=== PATIENT | male | born 1935 | race Caucasian/White ===

== ENCOUNTER 2016-06-22 10:58 | Emergency (ER) | payer MEDICARE, OTHER ==
--- NOTE | 2016-07-22 13:14 | EDM.PDOC ---
ED HPI ENT - General Chief Complaint: ENT Problem Stated Complaint: left ear ache Time Seen by Provider: 06/22/16 11:00 Source of Information: Reports: Patient History Limitations: Reports: No limitations - History of Present Illness INITIAL COMMENTS - FREE TEXT/NARRATIVE: Pain in left ear today Timing/Duration: Reports: Day(s): (1), Gradual onset Severity: moderate Location: Reports: left Ear Quality: Reports: Ache Improves with: Reports: None Worsens with: Reports: None Associated Symptoms: Reports: no other symptoms - Related Data Allergies/ADRs: Allergies Allergy/AdvReac Type Severity Reaction Status Date / Time No Known Allergies Allergy Verified 06/22/16 11:04 Home Meds: Home Meds Aspirin [Ecotrin] 325 mg PO DAILY 06/22/16 [History] Bisacodyl [Dulcolax] 5 mg PO BID 06/22/16 [History] Carbidopa/Levodopa [Sinemet 25-100 mg] 1 tab PO TIDM 06/22/16 [History] Cyanocobalamin (Vitamin B-12) [Vitamin B-12] 1,000 mcg PO DAILY 06/22/16 [ History] Finasteride [Proscar] 5 mg PO DAILY 06/22/16 [History] Hydrocort/Neomycin/Polymyxin B [Cortisporin Otic Soln] 10 ml EARLF QID 10 Days 06/22/16 [Rx] Ipratropium [place] 30 ml NS DAILY 06/22/16 [History] Lisinopril [Zestril] 20 mg PO DAILY 06/22/16 [History] Lovastatin 20 mg PO DAILY 06/22/16 [History] Multivitamin [Poly-Vitamin] 1 each PO DAILY 06/22/16 [History] Primidone 250 mg PO Q12H 06/22/16 [History] Primidone [Mysoline] 200 mg PO 1500 06/22/16 [History] Propranolol [Propranolol CR 24 Hr] 120 mg PO DAILY 06/22/16 [History] Tamsulosin HCl [Flomax] 0.4 mg PO DAILY 06/22/16 [History] amLODIPine [Norvasc] 10 mg PO BEDTIME 06/22/16 [History] Past Medical History HEENT History: Reports: Other (see below) Other HEENT History: Has HINTON with some bilat. hearing loss, does not wear HINTON; wears glasses. left ear infection Other Gastrointestinal History: Occasional constipation Other Oncologic History: Patient reports hx of skin cancer with removal procedures, unsure of amount of procedures and type of cancer; poor historian Other Dermatologic History: Patient reports hx of skin cancer with removal procedures, unsure of amount of procedures and type of cancer; poor historian - Past Surgical History Other Musculoskeletal Surgeries/Procedures:: Right knee Social & Family History - Tobacco Use Smoking Status *Q: Former Smoker Second Hand Smoke Exposure: No - Caffeine Use Caffeine Use: Reports: Coffee - Recreational Drug Use Recreational Drug Use: No - Living Situation & Occupation Occupation: retired (Retired [employer]) ED ROS ENT - Review of Systems Review Of Systems: ROS reveals no pertinent complaints other than HPI. ED EXAM, ENT - Physical Exam Exam: See Below Exam Limited By: No limitations General Appearance: alert, WD/WN, no apparent distress Ears: normal external exam, hearing grossly normal, normal TMs, canal discharge Nose: normal inspection, normal mucousa, no blood Mouth/Throat: Normal inspection, Normal oropharynx Head: atraumatic, normocephalic Neck: normal inspection, supple, non-tender, full range of motion. No: lymphadenopathy (L), lymphadenopathy (R) Respiratory/Chest: no respiratory distress, lungs clear, no accessory muscle use Cardiovascular: regular rate, rhythm GI/Abdominal: soft, non tender Back: normal inspection, full range of motion Extremities: normal capillary refill Neurological: alert, oriented, CN II-XII intact, normal cognition, no motor/ sensory deficits Psychiatric: normal affect, normal mood Skin: Warm, Dry, Intact, Normal color, No rash Lymphatic: no adenopathy Course - Vital Signs Last Recorded V/S: Last Vital Signs Temp 36.3 C 06/22/16 10:58 Pulse 73 06/22/16 10:58 Resp 20 06/22/16 10:58 BP 111/63 06/22/16 10:58 Pulse Ox 94 L 06/22/16 10:58 Departure - Departure Time of Disposition: 11:20 Disposition: Home, Self-Care 01 Condition: good Clinical Impression: Otitis externa Qualifiers: Otitis externa type: unspecified type Laterality: left Chronicity: acute Qualified Code(s): H60.502 - Unspecified acute noninfective otitis externa, left ear Prescriptions: Hydrocort/Neomycin/Polymyxin B [Cortisporin Otic Soln] 10 ml EARLF QID 10 Days Instructions: Otitis Externa, [id number] Forms: ED Department Discharge Additional Instructions: Use the cortisporin for the next 10 days to get rid of the infection in the left ear - Problem List Review Problem List Initiated/Reviewed/Updated: No - Assessment/Plan Assessment:: Left Otitis Externa Plan: Cortisporin for 10 days
== END 2016-06-22 11:21 | disposition home or self-care (01) ==
LOC: LL.ED 10:58
CPT/HCPCS: 99282

== ENCOUNTER 2017-01-11 11:38 | Emergency (ER) | payer MEDICARE, OTHER ==
[2017-01-11 11:47] VITALS: BP 118/72
[2017-01-11] MEDS ORDERED: Magnesium Citrate Solution 296 ML Bottle PO ONE (13:10)
--- NOTE | 2017-01-11 13:13 | EDM.PDOC ---
ED HPI GENERAL MEDICAL PROBLEM - General Chief Complaint: Gastrointestinal Problem Stated Complaint: constipation Time Seen by Provider: 01/11/17 12:25 Source of Information: Reports: Patient History Limitations: Reports: No Limitations - History of Present Illness INITIAL COMMENTS - FREE TEXT/NARRATIVE: Patient complaining of constipation. Has mild nausea, no emesis. No fevers. Reports no BM for last 3-4 days. Has intermittent problems with constipation. Dulcolax was not helpful. Has generalized abdominal fullness/discomfort. Non-focal. Pain does not radiate. - Related Data Allergies Allergy/AdvReac Type Severity Reaction Status Date / Time Unable to Assess Allergy Verified 01/11/17 11:40 Home Meds: Home Meds Bisacodyl [Dulcolax] 5 mg PO BID 06/22/16 [History] Carbidopa/Levodopa [Sinemet 25-100 mg] 1 tab PO TIDM 06/22/16 [History] Cyanocobalamin (Vitamin B-12) [Vitamin B-12] 1,000 mcg PO DAILY 06/22/16 [ History] Finasteride [Proscar] 5 mg PO DAILY 06/22/16 [History] Ipratropium [place] 30 ml NS DAILY 06/22/16 [History] Lisinopril [Zestril] 20 mg PO DAILY 06/22/16 [History] Lovastatin 20 mg PO DAILY 06/22/16 [History] Multivitamin [Poly-Vitamin] 1 each PO DAILY 06/22/16 [History] Primidone 250 mg PO Q12H 06/22/16 [History] Primidone [Mysoline] 200 mg PO 1500 06/22/16 [History] Propranolol [Propranolol CR 24 Hr] 120 mg PO DAILY 06/22/16 [History] Tamsulosin HCl [Flomax] 0.4 mg PO DAILY 06/22/16 [History] amLODIPine [Norvasc] 10 mg PO BEDTIME 06/22/16 [History] Aspirin [Halfprin] 81 mg PO BRK 01/11/17 [History] Past Medical History HEENT History: Reports: Other (See Below) Other HEENT History: Has HINTON with some bilat. hearing loss, does not wear HINTON; wears glasses. left ear infection Other Gastrointestinal History: Occasional constipation Other Oncologic History: Patient reports hx of skin cancer with removal procedures, unsure of amount of procedures and type of cancer; poor historian Other Dermatologic History: Patient reports hx of skin cancer with removal procedures, unsure of amount of procedures and type of cancer; poor historian - Past Surgical History Other Musculoskeletal Surgeries/Procedures:: Right knee Social & Family History - Tobacco Use Smoking Status *Q: Former Smoker Years of Tobacco use: 22 Packs/Tins Daily: 1 Used Tobacco, but Quit: Yes Month Tobacco Last Used: 1975 Second Hand Smoke Exposure: No - Caffeine Use Caffeine Use: Reports: None - Recreational Drug Use Recreational Drug Use: No - Living Situation & Occupation Occupation: Retired ED ROS GENERAL - Review of Systems Review Of Systems: See Below Constitutional: Reports: No Symptoms. Denies: Fever, Night Sweats HEENT: Reports: No Symptoms Respiratory: Reports: No Symptoms Cardiovascular: Reports: No Symptoms GI/Abdominal: Reports: Abdominal Pain (fullness/crampy at times), Constipation, Nausea. Denies: Anorexia, Black Stool, Bloody Stool, Diarrhea, Decreased Appetite, Difficulty Swallowing, Distension, Stool Incontinence, Vomiting : Reports: No Symptoms Musculoskeletal: Reports: No Symptoms Skin: Reports: No Symptoms Neurological: Reports: No Symptoms Psychiatric: Reports: No Symptoms ED EXAM, GI/ABD - Physical Exam Exam: See Below Exam Limited By: No Limitations General Appearance: Alert, WD/WN, No Apparent Distress Eyes: Bilateral: Normal Appearance, EOMI Ears: Normal External Exam Nose: Normal Inspection, Normal Mucosa, No Blood Throat/Mouth: Normal Inspection, Normal Voice, No Airway Compromise Head: Atraumatic, Normocephalic Neck: Normal Inspection, Supple, Non-Tender, Full Range of Motion Respiratory/Chest: No Respiratory Distress, Lungs Clear, Normal Breath Sounds, No Accessory Muscle Use, Chest Non-Tender Cardiovascular: Regular Rate, Rhythm, No Murmur GI/Abdominal Exam: Abnormal Bowel Sounds (decreased overall, still present), Other (mild diffuse discomfort with palpation, not painful per patient, just feels full. ). No: Distended, Guarding, Rigid, Rebound, Tender (Male) Exam: Deferred Rectal (Males) Exam: Deferred Back Exam: Normal Inspection. No: CVA Tenderness (L), CVA Tenderness (R), Muscle Spasm, Paraspinal Tenderness, Vertebral Tenderness Extremities: Normal Capillary Refill Neurological: Alert, Oriented, Normal Cognition, No Motor/Sensory Deficits Psychiatric: Normal Affect, Normal Mood Skin Exam: Warm, Dry, Intact, Normal Color Course - Vital Signs Last Recorded V/S: Last Vital Signs Temp 36.6 C 01/11/17 11:46 Pulse 75 01/11/17 11:46 Resp 12 01/11/17 11:46 BP 118/72 01/11/17 11:46 Pulse Ox 95 01/11/17 11:46 - Orders/Labs/Meds Orders: Active Orders 24 hr Category Date Time Status Enema [RC] ASDIRECTED Care 01/11/17 12:01 Active Abdomen 1V Upright [CR] Stat Exams 01/11/17 12:00 Taken Meds: Medications Discontinued Medications Generic Name Dose Route Start Last Admin Trade Name Freq PRN Reason Stop Dose Admin Magnesium Citrate 150 ml 01/11/17 13:10 01/11/17 13:16 Citrate Of Magnesia PO 01/11/17 13:11 150 ml ONETIME ONE Administration - Radiology Interpretation Free Text/Narrative:: Diffuse stool. No changes suggestive of acute abdomen. - Re-Assessments/Exams Free Text/Narrative Re-Assessment/Exam: 01/11/17 13:21 Patient reports improvement after enema. Had large bowel movement. Plan to have him drink Mag Citrate prior to discharge to help to continue to address constipation. He is to follow up in the ER if symptoms return/worsen. Discussed dietary modifications that may be helpful in avoiding constipation. Departure - Departure Time of Disposition: 13:10 Disposition: Home, Self-Care 01 Condition: Good Clinical Impression: Constipation Qualifiers: Constipation type: unspecified constipation type Qualified Code(s): K59.00 - Constipation, unspecified - Discharge Information Instructions: Constipation, Adult Referrals: PCP,Unknown [Primary Care Provider] - Forms: ED Department Discharge Additional Instructions: Drink the other 1/2 of the Mag Citrate either early this evening or tomorrow morning. See if this produces good results. One additional full bottle may be needed if you still have symptoms. Drink plenty of water and stay hydrated. Follow up as needed if things suddenly worsen or symptoms do not resolve. - My Orders Last 24 Hours: My Active Orders 01/11/17 12:00 Abdomen 1V Upright [CR] Stat 01/11/17 12:01 Enema [RC] ASDIRECTED - Assessment/Plan Last 24 Hours: My Active Orders 01/11/17 12:00 Abdomen 1V Upright [CR] Stat 01/11/17 12:01 Enema [RC] ASDIRECTED
== END 2017-01-11 13:23 | disposition home or self-care (01) ==
LOC: LL.ED 11:38
DX: K59.00 Constipation, unspecified (principal); Z79.82 Long term (current) use of aspirin; Z79.899 Other long term (current) drug therapy; Z87.891 Personal history of nicotine dependence
CPT/HCPCS: 74000; 99283; A9270

== ENCOUNTER 2018-09-08 17:56 | Emergency (ER) | payer MEDICARE, OTHER ==
[2018-09-08] MEDS ORDERED: Loperamide 2 MG Tab PO ONE (18:09)
[2018-09-08 18:33] LABS: CHLORIDE,CL 104 mmol/L (98-107); SODIUM,NA 140 mmol/L (136-145)
[2018-09-08] MEDS ORDERED: Sodium Chloride 0.9% 10 ML Syringe FLUSH PRN (18:39)
[2018-09-08] MEDS ORDERED: Sodium Chloride 0.9% 1,000 ML IV ONE (18:39)
--- NOTE | 2018-09-08 18:43 | EDM.PDOC ---
ED HPI GENERAL MEDICAL PROBLEM - General Chief Complaint: Gastrointestinal Problem Stated Complaint: loose stools for 4 days Time Seen by Provider: 09/08/18 18:24 Source of Information: Reports: Patient History Limitations: Reports: No Limitations - History of Present Illness INITIAL COMMENTS - FREE TEXT/NARRATIVE: Patient comes to ER with complaint of loose stools present for 4 days. 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 Has been referred to ENT specialist. Cefdinir/Ominicef. He stopped the antibiotics midcourse due to the diarrhea. He took Imodium only once to see if it would help. Patient came to ER as he continues to have the loose stools which occur approximately 4 times a day. No abdominal pain complaint. No fevers. Still eating and drinking well. Stools are non-bloody. Sometimes has nausea, no emesis. No other changes/complaints per patient. - Related Data Allergies Allergy/AdvReac Type Severity Reaction Status Date / Time Unable to Assess Allergy Verified 09/08/18 17:58 Home Meds: Home Meds Carbidopa/Levodopa [Sinemet 25-100 mg] 1 tab PO TIDM 06/22/16 [History] Cyanocobalamin (Vitamin B-12) [Vitamin B-12] 1,000 mcg PO DAILY 06/22/16 [ History] Finasteride [Proscar] 5 mg PO DAILY 06/22/16 [History] Ipratropium [place] 30 ml NS DAILY 06/22/16 [History] Lisinopril [Zestril] 20 mg PO DAILY 06/22/16 [History] Lovastatin 20 mg PO DAILY 06/22/16 [History] Multivitamin [Poly-Vitamin] 1 each PO DAILY 06/22/16 [History] Primidone 250 mg PO Q12H 06/22/16 [History] Primidone [Mysoline] 200 mg PO 1500 06/22/16 [History] Propranolol [Inderal LA] 120 mg PO DAILY 06/22/16 [History] Tamsulosin HCl [Flomax] 0.4 mg PO DAILY 06/22/16 [History] amLODIPine [Norvasc] 10 mg PO BEDTIME 06/22/16 [History] Aspirin [Halfprin] 81 mg PO BRK 01/11/17 [History] Past Medical History HEENT History: Reports: Sinusitis (chronic), Other (See Below) Other HEENT History: Has HINTON with some bilat. hearing loss, does not wear HINTON; wears glasses. Cardiovascular History: Reports: High Cholesterol, Hypertension Respiratory History: Reports: COPD Other Gastrointestinal History: Occasional constipation Genitourinary History: Reports: BPH Neurological History: Reports: Parkinson's Psychiatric History: Reports: Anxiety, Depression Other Oncologic History: Patient reports hx of skin cancer with removal procedures, unsure of amount of procedures and type of cancer; poor historian Other Dermatologic History: Patient reports hx of skin cancer with removal procedures, unsure of amount of procedures and type of cancer; poor historian - Past Surgical History Other Musculoskeletal Surgeries/Procedures:: Right knee Social & Family History - Caffeine Use Caffeine Use: Reports: None - Living Situation & Occupation Occupation: Retired ED ROS GENERAL - Review of Systems Review Of Systems: ROS reveals no pertinent complaints other than HPI. ED EXAM, GI/ABD - Physical Exam Exam: See Below Exam Limited By: No Limitations General Appearance: Alert, WD/WN, No Apparent Distress Eyes: Bilateral: EOMI Ears: Normal External Exam Nose: No: Nasal Deformity, Nasal Swelling, Nasal Drainage Throat/Mouth: Normal Lips, Normal Voice, No Airway Compromise Neck: Supple, Non-Tender Respiratory/Chest: No Respiratory Distress, Lungs Clear, Normal Breath Sounds, No Accessory Muscle Use, Chest Non-Tender Cardiovascular: Normal Peripheral Pulses, Regular Rate, Rhythm, No Edema, No Murmur GI/Abdominal Exam: Soft, Non-Tender, No Distention, Abnormal Bowel Sounds ( diminished throughout). No: Guarding, Rigid, Rebound, Tender (Male) Exam: Deferred Rectal (Males) Exam: Deferred Back Exam: No: CVA Tenderness (L), CVA Tenderness (R), Muscle Spasm Extremities: No Pedal Edema, Other (capillary refill slightly delayed). No: Non -Tender Neurological: Alert, Oriented, Normal Cognition, Other (equal tone/strength bilaterally) Psychiatric: Normal Affect, Normal Mood Course - Vital Signs Last Recorded V/S: Last Vital Signs Temp 37.1 C 09/08/18 18:01 Pulse 96 09/08/18 18:01 Resp 17 09/08/18 20:11 BP 128/69 09/08/18 20:11 Pulse Ox 95 09/08/18 20:11 - Orders/Labs/Meds Orders: Active Orders 24 hr Category Date Time Status UA W/MICROSCOPIC [URIN] Stat Lab 09/08/18 18:09 Ordered Sodium Chloride 0.9% [Saline Flush] Med 09/08/18 18:39 Active 10 ml FLUSH ASDIRECTED PRN Saline Lock Insert [OM.PC] Routine Oth 09/08/18 18:39 Ordered Medication Orders Sodium Chloride (Saline Flush) 10 ml FLUSH ASDIRECTED PRN PRN Reason: Keep Vein Open Last Admin: 09/08/18 18:54 Dose: 10 ml Labs: Laboratory Tests 09/08/18 09/08/18 Range/Units 18:14 18:14 WBC 6.1 (4.0-10.2) K/uL RBC 4.58 (4.33-5.41) M/uL Hgb 15.5 (13.1-16.8) g/dL Hct 45.5 (39.0-49.0) % MCV 99.3 H (84.0-98.0) fL MCH 33.8 H (28.2-33.3) pg MCHC 34.1 (31.7-36.0) g/dL RDW 13.0 (11.2-14.1) % Plt Count 181 (150-350) K/uL Neut % (Auto) 73.0 (45.0-80.0) % Lymph % (Auto) 11.8 (10.0-50.0) % [place] % (Auto) 13.0 (2.0-14.0) % Eos % (Auto) 2.0 (0.0-5.0) % Baso % (Auto) 0.2 (0.0-2.0) % Neut # (Auto) 4.45 (1.40-7.00) K/uL Lymph # (Auto) 0.72 (0.50-3.50) K/uL [place] # (Auto) 0.79 (0.00-1.00) K/uL Eos # (Auto) 0.12 (0.00-0.50) K/uL Baso # (Auto) 0.01 (0.00-0.20) K/uL Sodium 140 (136-145) mmol/L Potassium 4.1 (3.5-5.1) mmol/L Chloride 104 (98-107) mmol/L Carbon Dioxide 25.0 (21.0-32.0) mmol/L BUN 29 H (7-18) mg/dL Creatinine 0.86 (0.51-1.17) mg/dL Est Cr Clr Drug Dosing 67.37 mL/min Estimated GFR (MDRD) > 60 mL/min Glucose 111 H (74-106) mg/dL Calcium 8.3 L (8.5-10.1) mg/dL Total Bilirubin 0.5 (0.2-1.0) mg/dL AST 70 H (15-37) U/L ALT 22 (12-78) U/L Alkaline Phosphatase 131 H (46-116) IU/L Total Protein 7.3 (6.4-8.2) g/dL Albumin 3.6 (3.4-5.0) g/dL Meds: Medications Generic Name Dose Route Start Last Admin Trade Name Freq PRN Reason Stop Dose Admin Sodium Chloride 10 ml 09/08/18 18:39 09/08/18 18:54 Saline Flush FLUSH 10 ml ASDIRECTED PRN Administration Keep Vein Open Discontinued Medications Generic Name Dose Route Start Last Admin Trade Name Freq PRN Reason Stop Dose Admin Sodium Chloride 1,000 mls @ 500 mls/hr 09/08/18 18:39 09/08/18 18:50 Normal Saline IV 09/08/18 20:38 500 mls/hr .BOLUS ONE Administration Loperamide HCl 4 mg 09/08/18 18:09 09/08/18 18:29 Imodium Ad PO 09/08/18 18:10 4 mg ONETIME ONE Administration - Re-Assessments/Exams Free Text/Narrative Re-Assessment/Exam: 09/08/18 19:00 Normal WBC. Afebrile. AST elevation likely caused by Omnicef. Mild dehydration. Plan at this time is to give pt a bolus of 1liter of NS over two hours. 2 Imodium given. At this time the description of the stools/symptoms does not suggest C-Diff. Will let patient return home after IV fluids. No additional antibiotics planned at this time. Given that the sinusitis is a chronic problem it is doubtful that antibiotics would be of much help as such types of sinusitis are often linked to environment causes, including fungus, and allergens (including foot triggers). Precautions reviewed with patient, including returning for recheck if loose stools do not improve, or if they worsen, as further evaluation will be needed. Instructions on how to dose Imodium also given to patient. Free Text/Narrative Re-Assessment/Exam: 09/08/18 21:34 Able to provide UA specimen. Large amount of ketones noted. No WBCs/RBCs. No additional loose stools noted. Patient feeling improved. Discharged home. Departure - Departure Time of Disposition: 21:00 Disposition: Home, Self-Care 01 Condition: Good Clinical Impression: Antibiotic-associated diarrhea - Discharge Information *PRESCRIPTION DRUG MONITORING PROGRAM REVIEWED*: Not Applicable *COPY OF PRESCRIPTION DRUG MONITORING REPORT IN PATIENT NATALIA: Not Applicable Instructions: Food Choices to Help Relieve Diarrhea, Adult, Dehydration, Adult , [id number] Referrals: Jennifer Le PA-C [Primary Care Provider] - Forms: ED Department Discharge Additional Instructions: It is OK to take more than one Imodium daily. If diarrhea continues, you may take another Imodium tab. Repeat in 8 hours if additional diarrhea is noted. If loose stools do not improve within a few days, or if they suddenly worsen, you will need to be rechecked. Follow up at your clinic, or if needed, in the ER if you have worsening symptoms. Stay hydrated! - My Orders Last 24 Hours: My Active Orders 09/08/18 18:09 UA W/MICROSCOPIC [URIN] Stat 09/08/18 18:39 Sodium Chloride 0.9% [Saline Flush] 10 ml FLUSH ASDIRECTED PRN Saline Lock Insert [OM.PC] Routine - Assessment/Plan Last 24 Hours: My Active Orders 09/08/18 18:09 UA W/MICROSCOPIC [URIN] Stat 09/08/18 18:39 Sodium Chloride 0.9% [Saline Flush] 10 ml FLUSH ASDIRECTED PRN Saline Lock Insert [OM.PC] Routine
[2018-09-08 20:12] VITALS: BP 128/69
== END 2018-09-08 21:15 | disposition home or self-care (01) ==
LOC: LL.ED 17:56
DX: K52.1 Toxic gastroenteritis and colitis (principal); T36.1X5A Adverse effect of cephalosporins and other beta-lactam antibiotics, initial encounter; I10 Essential (primary) hypertension; J44.9 Chronic obstructive pulmonary disease, unspecified; Z79.899 Other long term (current) drug therapy
CPT/HCPCS: 36415; 80053; 81001; 85025; 96360; 96361; 99284-25; A9270-GY; J7030

== ENCOUNTER 2021-04-18 00:16 | Emergency (ER) | payer MEDICARE, OTHER ==
[2021-04-18] MEDS ORDERED: Diphtheria,Pertussis(Acell),Tetanus Vaccine 0.5 ML Syringe IM ONE (00:35)
[2021-04-18 00:50] VITALS: BP 132/77; PULSE 78
--- NOTE | 2021-04-18 01:42 | EDM.PDOC ---
ED HPI GENERAL MEDICAL PROBLEM - General Chief Complaint: Upper Extremity Injury/Pain Stated Complaint: Laceration Time Seen by Provider: 04/18/21 00:30 Source of Information: Reports: Patient History Limitations: Reports: No Limitations - History of Present Illness INITIAL COMMENTS - FREE TEXT/NARRATIVE: Patient presents to the ED for left thumb/hand injury. he was working on some trim boards on his table saw and not using a puch stick when the board slipped and he sustained a laceration to the thenar eminence of the left thumb. not on a blood thinner. Is right handed, tetanus is up to date. has some limited movement of the thumb. No previous injury - Related Data Allergies Allergy/AdvReac Type Severity Reaction Status Date / Time No Known Allergies Allergy Verified 04/18/21 00:17 Home Meds: Home Meds Carbidopa/Levodopa [Sinemet 25-100 mg] 1 tab PO TIDM 06/22/16 [History] Cyanocobalamin (Vitamin B-12) [Vitamin B-12] 1,000 mcg PO DAILY 06/22/16 [History] Finasteride [Proscar] 5 mg PO DAILY 06/22/16 [History] Ipratropium [place] 30 ml NS DAILY 06/22/16 [History] Lovastatin 20 mg PO DAILY 06/22/16 [History] Multivitamin [Poly-Vitamin] 1 each PO DAILY 06/22/16 [History] Primidone 250 mg PO Q12H 06/22/16 [History] Primidone [Mysoline] 200 mg PO 1500 06/22/16 [History] Propranolol [Inderal LA] 120 mg PO DAILY 06/22/16 [History] Tamsulosin HCl [Flomax] 0.4 mg PO DAILY 06/22/16 [History] amLODIPine [Norvasc] 10 mg PO BEDTIME 06/22/16 [History] lisinopriL [Zestril] 20 mg PO DAILY 06/22/16 [History] Aspirin [Halfprin] 81 mg PO BRK 01/11/17 [History] cephALEXin [Keflex] 500 mg PO Q8H 4 Days #16 cap 04/18/21 [Rx] Past Medical History HEENT History: Reports: Sinusitis (chronic), Other (See Below) Other HEENT History: Has HINTON with some bilat. hearing loss, does not wear HINTON; wears glasses. Cardiovascular History: Reports: High Cholesterol, Hypertension Respiratory History: Reports: COPD Other Gastrointestinal History: Occasional constipation Genitourinary History: Reports: BPH Neurological History: Reports: Parkinson's Psychiatric History: Reports: Anxiety, Depression Other Oncologic History: Patient reports hx of skin cancer with removal procedures, unsure of amount of procedures and type of cancer; poor historian Other Dermatologic History: Patient reports hx of skin cancer with removal procedures, unsure of amount of procedures and type of cancer; poor historian - Past Surgical History Other Musculoskeletal Surgeries/Procedures:: Right knee Social & Family History - Tobacco Use Tobacco Use Status *Q: Current Status Unknown - Caffeine Use Caffeine Use: Reports: None - Alcohol Use Alcohol Use History: No Alcohol Use in Last Twelve Months: No - Recreational Drug Use Recreational Drug Use: No Drug Use in Last 12 Months: No - Living Situation & Occupation Occupation: Retired Review of Systems - Review of Systems Review Of Systems: See Below Constitutional: Reports: No Symptoms Eyes: Reports: No Symptoms Ears: Reports: No Symptoms Nose: Reports: No Symptoms Mouth/Throat: Reports: No Symptoms Respiratory: Reports: No Symptoms Cardiovascular: Reports: No Symptoms GI/Abdominal: Reports: No Symptoms Genitourinary: Reports: No Symptoms Skin: Reports: Wound (left thumb) Neurological: Reports: Tremors (has parkinsons) ED EXAM, GENERAL - Physical Exam Exam: See Below Exam Limited By: No Limitations General Appearance: Alert, No Apparent Distress Eye Exam: Bilateral Eye: EOMI, PERRL Ears: Normal External Exam Nose: Normal Inspection Throat/Mouth: Normal Inspection, Normal Voice, No Airway Compromise Head: Atraumatic Respiratory/Chest: No Respiratory Distress, Lungs Clear, No Accessory Muscle Use Cardiovascular: Normal Peripheral Pulses, Regular Rate, Rhythm Extremities: Other (left thumb wtih 7 cm laceration at the base and onto the thenar eminence. thumb lays abnormally. sensation intact distally, concern for tendon injury as there is weakness in thumbs up and abduction. ) Neurological: Alert, Oriented, Normal Cognition ED TRAUMA EXTREMITY PROCEDURES - Laceration/Wound Repair Hand Lac/Wound Length In cm: 7 Appearance: Subcutaneous, Muscle, Irregular Distal NVT: Neuro & Vascular Intact, Other (concern for tendon injury, weakness with abduction of thumb) Anesthetic Type: Local Local Anesthesia - Lidocaine (Xylocaine): 1% Plain Local Anesthetic Volume: Other (8cc) Skin Prep: Saline Exploration/Debridement/Repair: Wound Explored, In a Bloodless Field, Minimal Debridement Closed With: Sutures Suture Size: 4-0 # of Sutures: 12 Suture Type: Prolene, Interrupted Suture Size: 4-0 # of Sutures: 4 Repaired With: Vicryl Drain Placement: No Sterile Dressing Applied: Provider Tetanus Status Addressed: Yes Complications: No Progress/Comments: large dressing applied to help brace the thumb Course - Vital Signs Last Recorded V/S: Last Vital Signs Temp 36.8 C 04/18/21 00:49 Pulse 78 04/18/21 00:49 Resp 16 04/18/21 00:49 BP 132/77 04/18/21 00:49 Pulse Ox 94 L 04/18/21 00:49 - Orders/Labs/Meds Orders: Active Orders 24 hr Category Date Time Status Hand Comp Min 3V Lt [CR] Stat Exams 04/18/21 00:24 Taken Meds: Medications Discontinued Medications Generic Name Dose Route Start Last Admin Trade Name Freq PRN Reason Stop Dose Admin Diphtheria/Tetanus/Acell Pertussis 0.5 ml 04/18/21 00:35 Diphtheria,Pertussis(Acell),Tetanus Vaccine 0.5 Ml Syringe IM 04/18/21 00:36 .ONCE ONE Lidocaine HCl 10 ml 04/18/21 00:35 Lidocaine 1% 5 Ml Sdv INJECT 04/18/21 00:36 ONETIME ONE - Radiology Interpretation Free Text/Narrative:: no acute on x-ray, preliminary interpretation - Re-Assessments/Exams Free Text/Narrative Re-Assessment/Exam: 04/18/21 01:52 Tetanus is up to date. concern for tendon injury. Managed to approximate wound and reposition thumb. bulky dressing in place for protection. advised not to lift any thing with it or use the thumb. needs to be on antibiotics for the tendon injury. given some and script written. Needs follow up with hand surgeon. writen instructions given and his coal tram driver would make sure the daughter was aware of the need to be seen in the next 7 days. Departure - Departure Time of Disposition: 01:35 Disposition: Home, Self-Care 01 Condition: Good Clinical Impression: Laceration of thumb, Tendon laceration - Discharge Information *PRESCRIPTION DRUG MONITORING PROGRAM REVIEWED*: Not Applicable *COPY OF PRESCRIPTION DRUG MONITORING REPORT IN PATIENT NATALIA: Not Applicable Prescriptions: cephALEXin [Keflex] 500 mg PO Q8H 4 Days #16 cap Instructions: Laceration Care, Adult, [id number] Referrals: Jennifer Le PA-C [Primary Care Provider] - Additional Instructions: You are given keflex 500 mg to be taken one tablet every 8 hour ( three times a day) for 9 days. You are given enough for 4 days and will need to fill a prescription to finish the course. You are placed on this with concern for tendon laceration in the thumb. Leave the dressing in place for 3 days if it stays clean and dry. You can them take it off and gently wash it and then place a dressing back on daily. DO NOT use the thumb. You need to call [facility] in the morning and schedule an appointment with a hand specialist for close follow up in the next 7 days. There is concern that you may need surgery for the tendon. Watch for signs of infection like redness or drainage, if they present, return to a medical provider. You can loosen the dressing if there is numbness to the end of the thumb or discoloration, but reapply the dressing after loosening it. keep the hand elevated to minimize swelling. If you do not have surgery, sutures should be removed in no earlier than 2 weeksI Sepsis Event Note (ED) - Evaluation Sepsis Screening Result: No Definite Risk - Focused Exam Vital Signs: Vital Signs Temp Pulse Resp BP Pulse Ox 04/18/21 00:49 36.8 C 78 16 132/77 94 L - My Orders Last 24 Hours: My Active Orders 04/18/21 00:24 Hand Comp Min 3V Lt [CR] Stat - Assessment/Plan Last 24 Hours: My Active Orders 04/18/21 00:24 Hand Comp Min 3V Lt [CR] Stat
== END 2021-04-18 01:55 | disposition home or self-care (01) ==
LOC: LL.ED 00:16
DX: S61.012A Laceration without foreign body of left thumb without damage to nail, initial encounter (principal); J44.9 Chronic obstructive pulmonary disease, unspecified; E78.00 Pure hypercholesterolemia, unspecified; I10 Essential (primary) hypertension; N40.0 Benign prostatic hyperplasia without lower urinary tract symptoms; Z79.899 Other long term (current) drug therapy; Z79.82 Long term (current) use of aspirin; W27.0XXA Contact with workbench tool, initial encounter
CPT/HCPCS: 12002; 73130-LT; 99283-25